=== PATIENT | male | born 1970 | race Caucasian/White ===

== ENCOUNTER 2022-01-17 10:34 | Day surgery (SDC) | payer OTHER ==
[~2022-01-17] VITALS: Ht 177.8 cm; Wt 125.3 kg
[~2022-01-17 10:34] MED LIST: DEPAKOTE500 M1 PO; ZOLOFT100 MG PO
[2022-01-17] MEDS ORDERED: LATUDA40 MG PO (12:45)
[2022-01-17] MEDS ORDERED: ZOLOFT 50MG50 MG PO (12:46)
[2022-01-17] MEDS ORDERED: DEPAKOTE ER 50500 MG PO (12:46)
[2022-01-17] MEDS ORDERED: LIPITOR 80MG80 MG PO (12:47)
[2022-01-17 15:02] VITALS: BP 111/78; PULSE 95; TEMP 97.7
[2022-01-17 15:15] VITALS: BP 102/81; PULSE 93
[2022-01-17 15:30] VITALS: BP 119/86; PULSE 80
--- NOTE | 2022-01-17 15:55 | NUR ---
1502 Pt returns from endo procedure via cart and RN assist to [facility] [place] [facility]. Pt ambulates from cart to recliner with RN assist. Monitors on and alarms set. Call light within reach. Report received from JOSELYN Decker. Pt alert and oriented. Pt requests coffee and muffin. Pt denies any pain or nausea. Pt's present in room. 1515 Pt taking food and drink well. No complications noted. 1545 Discharge instructions given to pt and pt's . All questions answered to their satisfaction. Handed to pt are a thank you card and discharge information. 1555 Pt transferred out of the hospital via wheelchair and this RN assist, to private vehicle driven by pt's .
[2022-01-17 15:58] VITALS: BP 133/82; PULSE 75; TEMP 97.9
== END 2022-01-17 15:55 | disposition home or self-care (01) ==
LOC: SDCO 10:34
DX: Z12.11 Encounter for screening for malignant neoplasm of colon (principal); D12.3 Benign neoplasm of transverse colon; D12.5 Benign neoplasm of sigmoid colon; K29.51 Unspecified chronic gastritis with bleeding; F17.210 Nicotine dependence, cigarettes, uncomplicated; Z85.038 Personal history of other malignant neoplasm of large intestine
CPT/HCPCS: J2704; J7120